=== PATIENT | female | born 1965 | race Caucasian/White ===

== ENCOUNTER 2016-07-26 15:15 | Emergency (ER) | payer MEDICARE, OTHER | END 2016-07-26 16:46 | disposition home or self-care (01) | LOC: FER 15:15 | DX: S60.455A Superficial foreign body of left ring finger, initial encounter (principal); Z23 Encounter for immunization; W60.XXXA Contact with nonvenomous plant thorns and spines and sharp leaves, initial encounter; Y92.009 Unspecified place in unspecified non-institutional (private) residence as the place of occurrence of the external cause | CPT/HCPCS: 90471; 90715 ==